=== PATIENT | male | born 1935 | race Caucasian/White ===

== ENCOUNTER 2018-01-24 06:49 | Emergency (ER) | payer OTHER ==
[2018-01-24] MEDS ORDERED: NA BICARBONATE 8.4% 50 ML SYG (07:00)
[2018-01-24] MEDS ORDERED: AMIODARONE 900 MG INJ (07:00)
[2018-01-24] MEDS ORDERED: EPINEPHrine 0.1 MG/ML SYG (07:00)
[2018-01-24] MEDS ORDERED: ATROPINE 1 MG/10 ML SYRINGE (07:00)
[2018-01-24] MEDS ORDERED: CA CHLORIDE 10% 10 ML SYRINGE (07:00)
== END 2018-01-24 11:54 | disposition expired ==
LOC: E/R 06:49
DX: I46.9 Cardiac arrest, cause unspecified (principal); R00.1 Bradycardia, unspecified
CPT/HCPCS: 31500; 93005; 94002; 99285-25